=== PATIENT | male | born 1940 | race Caucasian/White ===

== ENCOUNTER 2017-02-01 01:09 | Inpatient (IN) ==
[~2017-02-01 01:09] MED LIST: PROTONIX 80 MG in NS 80 ML IV ONE
[2017-02-01 01:10] LABS: MANUAL DIFF NEEDED? NO
[2017-02-01 01:18] LABS: BASO% 0.3 % (0.0-0.8); EOS# 0.01 X1000 (0.0-0.7); EOS% 0.1 % (0.0-10.0); HEMATOCRIT 23.3 % (42.0-52.0); IMM GRAN# 0.04 X1000 (0.0-0.04); IMM GRAN% 0.3 % (0.0-0.5); LYMPH# 1.59 X1000 (1.2-3.4); LYMPH% 13.9 % (20.5-51.1); MCH 26.1 PG (27-31); MCV 86.9 FL (81-99); MONO# 0.73 X1000 (0.11-0.59); MONO% 6.4 % (1.7-9.3); MPV 10.8 FL (7.4-10.4); PLT 247 X1000 (130-400); RBC 2.68 XMIL (4.7-6.1)
[2017-02-01] MEDS ORDERED: NS 1,000 ML IV ONE (01:28)
[2017-02-01 01:50] LABS: ALBUMIN 3.9 g/dL (3.5-5.0); CALCIUM 8.5 mg/dL (8.8-10.2); POTASSIUM 4.7 mmol/L (3.5-5.1); TOTAL BILIRUBIN 0.47 mg/dL (0.20-1.00); TOTAL PROTEIN 6.6 g/dL (6.3-8.3)
[2017-02-01 01:51] LABS: INR 2.63; PROTIME 29.4 Seconds (9.2-11.7)
[2017-02-01] MEDS: PROTONIX 80 MG in NS 80 ML IV SCH ×3 (02:00→23:49)
--- NOTE | 2017-02-01 03:00 | PROVIDER DOCUMENTATION ---
This chart was entered by Sudha Vila Scribe, acting as scribe for Ang Velasquez MD. HPI-Abdominal Pain/GI Problem - General Chief Complaint: GI Bleed Stated Complaint: GI BLEEDING "DARK STOOLS" Time Seen by Provider: 02/01/17 01:52 Source: patient Allergies/Adverse Reactions: Patient Allergies Allergy/AdvReac Type Severity Reaction Status Date / Time Penicillins Allergy HIVES Verified 03/11/16 12:54 Home Medications: Home Medication List Medication Instructions Recorded Confirmed Last Taken Type Calcium Carbonate [Tums] 500 mg PO BID 10/22/15 03/11/16 03/11/16 09:30 History Cyanocobalamin (Vitamin B-12) 200 mcg PO DAILY 10/22/15 03/11/16 03/11/16 09:30 History [Cyanocobalamin] Furosemide [Lasix] 40 mg PO DIRECTED 10/22/15 03/11/16 03/11/16 09:30 History Insulin Aspart [Novolog] 10 unit SQ TID 10/22/15 03/11/16 03/11/16 09:30 History Levothyroxine [Synthroid] 25 microgm PO DAILY 10/22/15 03/11/16 03/11/16 09:30 History PRAVAstatin [Pravachol] 40 mg PO DAILY 10/22/15 03/11/16 03/10/16 History Potassium Chloride 20 meq PO DAILY 10/22/15 03/11/16 03/11/16 09:30 History Warfarin [Coumadin] 2.5 mg PO DIRECTED 10/22/15 03/11/16 03/11/16 09:30 History Alfuzosin HCl [Uroxatral] 10 mg PO DAILY 03/11/16 03/11/16 03/11/16 09:30 History Cholecalciferol (Vit D3) [Vitamin 400 unit PO DAILY 03/11/16 03/11/16 03/11/16 09:30 History D] Cyclobenzaprine [Flexeril] 10 mg PO TID #20 tablet 03/11/16 Unknown Rx Lisinopril 2.5 mg PO DAILY 03/11/16 03/11/16 03/11/16 09:30 History NPH, Human Insulin Isophane 12 unit SQ QHS 03/11/16 03/11/16 03/10/16 History [Novolin N] NPH, Human Insulin Isophane 20 unit SQ DIRECTED 03/11/16 03/11/16 03/11/16 09 :30 History [Novolin N] Tramadol [Ultram] 50 mg PO Q8HR #20 tablet 03/11/16 Unknown Rx - History of Present Illness-ABD Nature of Presenting Problems: 76 Y/O M presents to ED with Rectal Bleeding. Pt states that he has had black stools since 3 days ago 1x a day. Pt states dizziness with lightheaded onset today. Denies ABD pain sates rolling feeling in ABD. Pt states no hx of GI bleed. Severity in ED: reports: severe Onset/Duration: reports: 3 days ago Timing: reports: still present, changing over time, getting worse Associated Symptoms: reports: dizziness, genitourinary problems, weakness. denies: diarrhea, EENT symptoms, fever/chills, sinus congestion/drainage, seizure, sensory/motor loss, swelling/mass in abdomen, vomiting Last BM: this afternoon Dark Stools Present?: reports: black Review of Systems - Adult - REVIEW OF SYSTEMS - ADULT Constitutional: denies: chills, fever Eyes: reports: no symptoms reported Ears, Nose, Mouth & Throat: reports: no symptoms reported Cardiovascular: reports: no symptoms reported Respiratory: reports: no symptoms reported Gastrointestinal: reports: rectal bleeding. denies: abdominal pain, diarrhea, nausea, vomiting Genitourinary: reports: no symptoms reported Musculoskeletal: denies: bone pain Integumentary: reports: no symptoms reported Neurological: reports: dizziness/vertigo, other. denies: loss of balance, slurred speech Psychiatric: reports: no symptoms reported Endocrine: reports: no symptoms reported Hematologic/Lymphatic: reports: no symptoms reported Allergic/Immunologic: reports: no symptoms reported All Other Systems: Reviewed and Negative Past History - Adult - PAST MEDICAL HISTORY-ADULT Review of Records: reports: Old Records Reviewed, Nursing Assessment Review, Medications Reviewed, Social history reviewed & non-contributory. Major Childhood Illnesses: reports: denies history Cardiovascular: reports: CHF, pacemaker Respiratory: reports: denies history Gastrointestinal: reports: denies history Obstetrical/Gynecological: reports: denies history Genitourinary: reports: denies history Musculoskeletal: reports: denies history Neurological: reports: denies history Endocrine/Immune: reports: Diabetes Other Conditions: reports: denies history - PRIOR SURGERIES/PROCEDURES Surgical/Procedure History: reports: pacemaker - IMMUNIZATION STATUS Childhood Immunizations: See Nurse Assessment Flu Vaccine: See Nurse Assessment - FAMILY HISTORY Family History: reviewed, not pertinent Physical Exam-General - CONSTITUTIONAL General Appearance: alert, no apparent distress - EYES Eyes: anisocoria, pale conjunctivae - HEAD, EARS, NOSE, MOUTH & THROAT HENMT: moist mucous membranes, normal ENT inspection, TMs normal, pharynx normal - NECK Neck: full range of motion, supple - RESPIRATORY Respiratory: lungs clear, normal breath sounds - CARDIOVASCULAR Cardiovascular: regular rate, rhythm - GASTROINTESTINAL (ABDOMEN) Abdominal Exam: non tender, soft - LYMPHATIC Lymphatic: no adenopathy - MUSCULOSKELETAL Back Exam: no CVA tenderness, no vertebral tenderness Extremity: non-tender, normal gait - SKIN Integumentary: negative: normal color (pale) - NEUROLOGIC Neurologic: grossly normal - PSYCHIATRIC Psych/Mental Status: normal mood/affect, normal thought content, normal thought process, oriented x 3 Progress - PLAN OF CARE/RESULTS Progress/Plan/Lab Results: Vital Signs - 8 hr 02/01/17 00:39 Temperature 98.1 F Pulse Rate 81 Respiratory Rate 15 Blood Pressure 115/77 O2 Sat by Pulse Oximetry 99 Laboratory Results - last 24 hr 02/01/17 02/01/17 00:41 00:41 WBC 11.48 H RBC 2.68 L Hgb 7.0 L Hct 23.3 L MCV 86.9 MCH 26.1 L MCHC 30.0 L RDW Std Deviation 16.4 H Plt Count 247 MPV 10.8 H Immature Gran % (Auto) 0.3 Neut % (Auto) 79.0 H Lymph % (Auto) 13.[address] [place] % (Auto) 6.4 Eos % (Auto) 0.1 Baso % (Auto) 0.3 Immature Gran # (Auto) 0.04 Neut # (Auto) 9.08 H Lymph # (Auto) 1.59 [place] # (Auto) 0.73 H Eos # (Auto) 0.01 Baso # (Auto) 0.03 Estimated GFR/1.73 m2 42 Orders Category Date Time Status Saline Loc DIRECTED Care 02/01/17 00:42 Active Transfuse .Give-Transfuse Care 02/01/17 01:25 Active NPO Diet 02/01/17 00:42 Active FLAT/UPRIGHT ABD/1 VIEW CHEST [RAD] Stat Exams 02/01/17 00:43 Taken CBC WITH ELECTRONIC DIFF [HEME] Stat Lab 02/01/17 00:41 Completed COMPREHENSIVE METABOLIC PANEL [CHEM] Stat Lab 02/01/17 00:41 Results FRESH FROZEN PLASMA [BBK] Stat Lab 02/01/17 00:41 Results LIPASE [CHEM] Stat Lab 02/01/17 00:41 Results LRPC (RED CELLS) [BBK] Stat Lab 02/01/17 01:25 Uncollected PROTIME WITH INR [COAG] Stat Lab 02/01/17 01:26 Received TYPE & SCREEN [BBK] Stat Lab 02/01/17 00:41 Results 0.9% Sodium Chloride Inj [Ns] 1,000 ml Med 02/01/17 01:28 Active IV 999 mls/hr 0.9% Sodium Chloride Inj [Ns] 80 ml Med 02/01/17 02:00 Active Pantoprazole [Protonix] 80 mg IV 10 mls/hr Pantoprazole [Protonix] 80 mg Med 02/01/17 00:43 Discontinued 0.9% Sodium Chloride Inj [Ns] 80 ml IV NOW Result Diagrams: 02/01/17 00:41 02/01/17 00:41 Departure - Departure Date of Disposition Decision: 02/01/17 Time of Disposition Decision: 02:59 DIAGNOSIS: GI bleed Qualifiers: GI bleed type/associated pathology: unspecified gastrointestinal hemorrhage type Qualified Code(s): K92.2 - Gastrointestinal hemorrhage, unspecified Disposition: ADMITTED INPATIENT 09 Certified Medical Emergency: Emergent Condition: Stable - Critical Care Note This patient required my direct & personal management of CC.: Yes Total Time (mins): 60 Critical Care Statement: This patient required my direct personal management to treat or rule out processes, the absence of which, could potentiallly result in sudden, clinically significant life or limb threatening deterioration. Attestation - Physician/ GATO Attestation Patient care was provided by Advanced Practice Provider:: No The physician spent face to face time with patient:: Yes Advanced Practice Provider documentation review:: Supervising physician onsite and consulted in the evaluation and care of this patient. The physician did have a face to face encounter with the patient. This chart was documented by the indicated scribe, (Cadence,Sudha, Scribe) and accurately reflects the services I performed and decisions made by me, Ang Velasquez MD, as attested by the provider's signature.
[2017-02-01] MEDS ORDERED: LASIX IV ONE (04:30)
--- NOTE | 2017-02-01 05:40 | HISTORY AND PHYSICAL ---
PRIMARY CARE PROVIDER: Dr. Moscoso at the [facility] in [place]. CMM OPERATOR: Dr. Jae Simon in [place]. CHIEF COMPLAINT: Black stools. HISTORY OF PRESENT ILLNESS: This is a 76-year-old, male with a history of ischemic cardiomyopathy and CABG, congestive heart failure with an ejection fraction of 50%, and diabetes mellitus, and atrial fibrillation with chronic Coumadin anticoagulation who presents to the emergency room with complaint of black stools x3 days. He stated that Monday, he noted a little bit of red blood mixed in but since that time, they have been dark and chalky. He denied abdominal pain, nausea, vomiting, chest pain, fever, chills, diarrhea, or dysuria. His was at the bedside, very supportive. Laboratory data was obtained in the ER which showed a hemoglobin and hematocrit of 7 and 23.3 respectively. His INR was in range at 2.63 but because of the bleeding, he was given 2 units of FFP. This will be followed by 40 mg of Lasix in the emergency room. He will be admitted in the inpatient status for further evaluation and treatment. PAST MEDICAL HISTORY: 1. Ischemic cardiomyopathy, status post CABG. 2. Permanent pacemaker implantation with AICD. 3. Hypertension. 4. Diabetes mellitus type 2, now insulin dependent. 5. 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 6. Chronic atrial fibrillation. SURGICAL HISTORY: 1. Right partial hip. 2. Quadruple bypass cardiac surgery. 3. Back surgery. 4. Cholecystectomy. 5. AICD placement. 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 Denies tobacco, alcohol, or illicit drug use or abuse. He is , has 1 daughter who lives in [place]. FAMILY HISTORY: Extensive cardiac disease in all first-degree relatives. Has once sibling who from a myocardial infarction. ALLERGIES: Penicillin, causing hives. HOME MEDICATIONS: A list could not be reconciled. Nursing to reconcile home medication list and place in the computer. REVIEW OF SYSTEMS: Fourteen point review of systems conducted with the patient. Pertinent positives listed above in the HPI. All other systems reviewed and found to be negative. PHYSICAL EXAMINATION: VITAL SIGNS: Temperature 98.3 degrees, pulse 83, respirations 18, blood pressure 126/67, oxygen saturation 98-100 on room air. GENERAL: Very pleasant, 76-year-old male. at bedside. Answers all questions appropriately. In no acute distress. HEENT: Head is atraumatic, normocephalic. Pupils equal, round, reactive to light. Extraocular eye movement is intact. Sclerae are anicteric. Mildly pale conjunctivae. Oral mucosa is dry. NECK: Supple. No JVD. No thyromegaly. Trachea is midline. CARDIAC: Irregularly irregular. No murmurs, gallops, or rubs. LUNGS: Clear to auscultation bilaterally. No rhonchi, wheezes, or rales. Symmetrical rise and fall with respirations. ABDOMEN: Protuberant, soft, nondistended, nontender. Bowel sounds hyperactive in all 4 quadrants. No pulsatile mass. No organomegaly. EXTREMITIES: Trace bilateral lower extremity edema, nonpitting. There are 2+ pedal pulses in all 4 extremities. NEUROLOGICAL: Alert and oriented x3. Awake and alert. Cranial nerves 2-12 grossly intact. LABORATORY DATA: WBC 11.48, hemoglobin 7, hematocrit 23.3, platelet count 247, 000. PT 29.4, INR 2.63. Sodium 133, potassium 4.7, chloride 93, carbon dioxide 28, BUN 55, creatinine 1.6, glucose 189. ASSESSMENT AND PLAN: 1. Gastrointestinal bleed, likely secondary to chronic Coumadin use. Two units of fresh frozen plasma were given in the emergency room. We will consult Dr. Nurys Myrick, gastroenterology, for endoscopy/colonoscopy. Protonix drip was started in the emergency room. We will continue. 2. Acute kidney injury. This is likely secondary to acute hemorrhagic anemia. Normal saline was given in the emergency room, followed by 2 units of fresh frozen plasma. The patient will also be receiving 2 units of packed red blood cells. We will monitor fluid status as he is known to have congestive heart failure. 3. Congestive heart failure with an ejection fraction last checked at 50% as noted above. We will monitor fluid volume status. Continue Lasix 40 mg by mouth daily. I believe this is the dose the patient takes. 4. Diabetes mellitus type 2, now insulin dependent. Start sliding scale insulin with fingersticks before meals and at bedtime. 5. Hypertension. The patient is normotensive secondary to blood loss. He will likely need a continuation of his home medication. This has not been placed in the computer yet. Nursing is working on reconciling a list and this will be restarted when appropriate. 6. Further recommendations per patient's clinical course. Dictated by STACIE Bustillos for Viola Spears MD Seen,examined and discussed with CARE AID. cc: STACIE Bustillos MD [facility] Din[facility]ip
[2017-02-01] MEDS ORDERED: ZOFRAN IV PRN (05:42)
--- NOTE | 2017-02-01 06:10 | Diag Imaging Result Doc PS360 ---
EXAM: FLAT/UPRIGHT ABD/1 VIEW CHEST HISTORY: gi bleed TECHNIQUE: Four views COMPARISON: 10/26/2015 FINDINGS: The heart is enlarged. There are sternal wires and left-sided pacemaker. The vessels are not distended. No pneumonia. There is stool throughout the colon. The bowel loops are not dilated. The gallbladder has been removed. No free air beneath the diaphragm. There are degenerative changes throughout the thoracic and lumbar spine. There has been prior orthopedic replacement to the right hip. IMPRESSION: Constipation Electronically signed by Nils Haney 02/01/2017 6:08 AM
[2017-02-01 06:45] LABS: HEMOGLOBIN A1C 6.5 % (4.8-6.0)
[2017-02-01] MEDS: HUMALOG SUBQ SCH ×4 (10:47→22:11)
[2017-02-01] MEDS: LASIX PO SCH (11:02)
[2017-02-01 12:28] LABS: INR 2.54; PROTIME 28.3 Seconds (9.2-11.7)
[2017-02-01 14:16] LABS: HEMATOCRIT 25.7 % (42.0-52.0); HEMOGLOBIN 8.1 g/dL (14.0-18.0)
[2017-02-01 14:19] LABS: INR 1.9; PROTIME 20.8 Seconds (9.2-11.7)
--- NOTE | 2017-02-02 03:28 | CONSULTATION ---
DATE OF CONSULTATION: 02/01/2017 REFERRING PHYSICIAN: Viola Spears M.D. PRIMARY CARE PROVIDER: Dr. Moscoso at the [facility] in [place]. PRIMARY TOOL AND FIXTURE REPAIRER: Dr. Jae Simon in [place], [place]. INDICATION FOR CONSULTATION: Melena. HISTORY OF PRESENT ILLNESS: The patient is a 76-year-old, white male with ischemic heart disease, congestive heart failure, diabetes mellitus, atrial fibrillation, and a cardiac thrombus. He is on chronic Coumadin therapy. He presented to the emergency room with 3 days of black stool. He reports that initially, he noted some bright red blood mixed in the darker stools. However, it became persistently black and chalky. He denies other symptoms. In the emergency room, he was found to have a hemoglobin of 7 with a hematocrit of 23.3. He also had an INR of 2.63. The INR has been treated with anticoagulation. Because of his melena that has persisted since admission, we were asked to participate in his care. PAST MEDICAL HISTORY: 1. Ischemic cardiomyopathy, status post CABG. 2. Permanent pacemaker placement with AICD. 3. Hypertension. 4. Diabetes 2. 5. Cardiac thrombus requiring Coumadin. 6. Chronic atrial fibrillation. PAST SURGICAL HISTORY: 1. Partial right hip replacement. 2. Four-vessel bypass surgery. 3. Back surgery. 4. Cholecystectomy. 5. AICD. SOCIAL HISTORY: Negative for alcohol, tobacco, or recreational drug use. FAMILY HISTORY: Positive for extensive cardiac disease in multiple family members. According to the computer, he lost 1 sibling secondary to a myocardial infarction. MEDICATION ALLERGIES: Penicillin. HOME MEDICATIONS: 1. Coumadin. 2. Ultram. 3. Terazosin. 4. Potassium chloride. 5. Pravastatin. 6. Novolin NPH. 7. Robaxin. 8. Lisinopril. 9. Synthroid. 10. NovoLog. 11. Lasix. 12. Vitamin B12. 13. Vitamin D3. 14. Calcium carbonate. PHYSICAL EXAMINATION: Vital Signs: On exam, his blood pressure is 125/61, pulse 79, respirations 19, temperature of 98.6 degrees. HEENT: Negative. Oropharyngeal mucosal membranes are slightly dry. Pulmonary Examination: His lungs are clear to auscultation with normal respiratory effort. Cardiovascular Examination: Reveals an irregularly irregular rhythm with no murmurs, gallops, or rubs. Abdominal Examination: Reveals normoactive bowel sounds. The abdomen is soft with mild epigastric tenderness but no rebound or guarding. Extremities: Bilaterally are negative for cyanosis, clubbing, or edema. OBJECTIVE DATA: Remarkable for a hemoglobin of 7 with hematocrit of 23.3. His white count is 11.48 with 247,000 platelets. Posttransfusion, his hemoglobin was 8.1 with a hematocrit of 25.7 (the patient received 2 units of packed red blood cells with incomplete correction). His PT is 20.8 with an INR of 1.9. His sodium is 133, potassium 4.7, chloride 93, CO2 28 , BUN 55, creatinine 1.6 with a glucose of 189. Calcium is 8.5, total bilirubin 0.47, AST 14, ALT 9, alkaline phosphatase 82, total protein 6.6, and albumin 3.9. His lipase is normal at 41. IMPRESSION: 1. Melena. 2. Epigastric discomfort. 3. Significant coronary artery disease. RECOMMENDATION: 1. We will place patient on the schedule for an EGD tomorrow afternoon. 2. Please ask cardiology to see the patient to assess stability prior to endoscopy. I doubt that there will be any absolute contraindications to the scheduled procedure but we need to know. 3. Please check a PT/INR in the morning. He may require an additional unit of FFP prior to his endoscopy. 4. Additional recommendations to follow based on his endoscopic findings and his clinical course. cc: MD Yarelis Srivastava MD [facility] MTDD
--- NOTE | 2017-02-02 06:15 | EKG Report ---
Test Performed on : 02/01/2017 4:29:40 PM Test Reason : dyspnea Blood Pressure : / mmHG Vent. Rate : 084 BPM Atrial Rate : 087 BPM P-R Int : 000 ms QRS Dur : 156 ms QT Int : 450 ms P-R-T Axes : 000 229 038 degrees QTc Int : 531 ms Ventricular-paced rhythm Biventricular pacemaker detected Abnormal ECG When compared with ECG of 24-OCT-2015 17:04, Electronic ventricular pacemaker has replaced Wide QRS rhythm. Confirmed by Benji Hurley DO ([id number]) on 02/05/2017 4:20:28 PM
[2017-02-02 07:31] LABS: MANUAL DIFF NEEDED? NO
[2017-02-02 07:33] LABS: BASO% 0.3 % (0.0-0.8); EOS# 0.11 X1000 (0.0-0.7); HEMATOCRIT 26.5 % (42.0-52.0); HEMOGLOBIN 8.2 g/dL (14.0-18.0); IMM GRAN# 0.02 X1000 (0.0-0.04); IMM GRAN% 0.2 % (0.0-0.5); LYMPH# 1.15 X1000 (1.2-3.4); LYMPH% 10.5 % (20.5-51.1); MCH 27.2 PG (27-31); MCHC 30.9 g/dL (33-37); MCV 87.7 FL (81-99); MONO# 0.89 X1000 (0.11-0.59); MONO% 8.1 % (1.7-9.3); MPV 10.7 FL (7.4-10.4); NEUT% 79.9 % (42.2-75.2); PLT 208 X1000 (130-400); RBC 3.02 XMIL (4.7-6.1)
[2017-02-02 07:40] LABS: INR 2.32; PROTIME 25.7 Seconds (9.2-11.7)
--- NOTE | 2017-02-02 07:46 | CONSULTATION ---
DATE OF CONSULTATION: 02/01/2017 REQUESTING PHYSICIAN: Hospitalist service. REASON FOR CONSULTATION: Patient with history of coronary heart disease, long-term anticoagulation. HISTORY: Mr. Rogers is a 76-year-old male who presented to the hospital because he had noted that he was passing dark stools when going to the bathroom, and this had been going on for the past 3 days. In addition, he was feeling somewhat weak. He denies having any chest pain or abdominal pain or syncope. Upon presentation, his hemoglobin has been documented to be 7.0. His hematocrit has been documented to be 23.3. They have consulted the medical research assistant. His pro time INR at the time of presentation was 2.63 at 1:26 in the morning today. The patient has been given fresh frozen plasma and red blood cells. The patient is lying comfortably in bed. He is not having any obvious distress or active complaints. PAST MEDICAL HISTORY: His past history is positive for paroxysmal atrial fibrillation in the past. He has had coronary heart disease. He has had hypertension, hyperlipidemia, a remote history of a cardiac thrombus, COPD, diabetes mellitus type 2, CHF, peripheral vascular disease, and an episode of urinary septicemia last year which led to respiratory failure. SURGICAL HISTORY: He has had previous coronary bypass surgery x4. He has had cholecystectomy, implantation of an AICD, right hip replacement, shoulder surgery, back surgery. SOCIAL HISTORY: He is a retired tester/lift trucker. He is . He is not a smoker. FAMILY HISTORY: Coronary heart disease in several family members. HOME MEDICATIONS: Included warfarin 2.5 alternating with 5 mg. His anticoagulation is monitored by the [facility] system, Dr. Moscoso. He takes tramadol 50 mg q.8 h., terazosin 1 mg at bedtime, potassium chloride 20 mEq daily, pravastatin 40 mg daily, Robaxin 500 daily, lisinopril 2.5 daily, levothyroxine 50 mcg daily, furosemide/Lasix 40 mg as directed, Vitamin D 400 units daily, calcium carbonate 500 twice a day, Vitamin B12. ALLERGIES: Penicillin. REVIEW OF SYSTEMS: He has some chronic limitation to perform physical activity. He has some chronic arthritis. He has also some mild swelling of the lower extremities. He has not experienced any chest pain in a long time. No recent bouts of pneumonia or urinary problems. PHYSICAL EXAMINATION: Vital signs: Blood pressure 135/59, temperature 98.5, pulse is 79, respirations 19. General: He is awake, alert, obese, pale, lying flat in no distress. HEENT: No jugular venous distention, no cervical bruits. Chest: Symmetrical breath sounds, occasional rales, scattered, clear up with cough. Cardiac: Heart sounds are regular and rhythmic. I do not hear any definite gallop or murmur. Abdomen: Obese, nontender, no masses, no hepatomegaly. Extremities: Decreased pulses. There is trace brawny edema. There is some discoloration probably related to chronic stasis dermatitis. Neurological: Follows commands, moves four extremities. BLOOD WORK TODAY: His BUN is 55, creatinine 1.6, sodium 133, potassium 4.7. His white count is 11,580. EKG: EKG done today shows activity of a VVI pacemaker. He is in underlying atrial fibrillation. IMPRESSION: 1. Patient who presents with what appears to be gastrointestinal bleeding. He has black stools and anemia noted on his blood count. 2. Previous history of coronary heart disease and bypass surgery with a stable pattern of cardiac symptoms, functional class II [place] [employer]. 3. History of previous implantation of AICD. 4. Chronic/persistent atrial fibrillation on long-term anticoagulation with warfarin. The [facility] system monitors this. Dr. Simon from the [facility] monitors his pacemaker. RECOMMENDATION: From a cardiology viewpoint, it is okay to discontinue his warfarin. He apparently had a cardiac thrombus 13 years ago. The likelihood of a persistent thrombus is basically zero after 13 years. At this point in time, it will be safe to put on hold his warfarin for as long as needed to allow for resolution of his gastrointestinal bleeding, and then the medical research assistant should give specific instructions as to when to resume the anticoagulation if it is safe to do so. The patient is to follow up with the [employer] system who are the ones who monitor his anticoagulation, and also he already has an upcoming appointment with Dr. Simon in about a month from now with the [facility] for ongoing care of his underlying cardiac status which at the present time appears to be stable. Please call me if you have any questions. cc: Meir Barker MD
[2017-02-02 07:53] LABS: CALCIUM 8.7 mg/dL (8.8-10.2); POTASSIUM 3.8 mmol/L (3.5-5.1)
[2017-02-02] MEDS: HUMALOG SUBQ SCH ×4 (07:59→21:38)
[2017-02-02] MEDS ORDERED: VITAMIN K SUBQ ONE (09:57)
[2017-02-02] MEDS: PROTONIX 80 MG in NS 80 ML IV SCH (10:43)
[2017-02-02] MEDS: LASIX PO SCH (10:43)
[2017-02-02] MEDS ORDERED: NS 500 ML ONE (11:56)
[2017-02-02 14:11] LABS: INR 1.86; PROTIME 20.3 Seconds (9.2-11.7)
--- NOTE | 2017-02-02 16:49 | PROGRESS NOTE ---
DATE: 02/01/2017 SUBJECTIVE: The patient is resting comfortably in bed. He is scheduled for an endoscopy today. No acute events noted overnight. He denies having any abdominal pain or a bowel movement yet today. OBJECTIVE: Vital Signs: Temperature 97 degrees, blood pressure 130/61, heart rate 80, respirations 19, O2 saturation 98% on room air. General: This is an elderly male, sitting at the edge of the bed, in no acute distress. Heart: S1, S2. Normal. Regular rate and rhythm. Lungs: Clear to auscultation bilaterally. No crackles. No rales. Abdomen: Positive bowel sounds. Soft, nontender, nondistended. Extremities: No edema. No cyanosis. Neurologic: The patient is alert and oriented x3. LABS: White blood cell count 10, hemoglobin 8.2, hematocrit 26. INR 1.8. Sodium 140, potassium 3.8, chloride 98, CO2 27, BUN 36, creatinine 1.2, glucose 152, calcium 8.7, TSH 3.95. ASSESSMENT AND PLAN: 1. Gastrointestinal bleed. The patient will receive 2 more units of FFP since his INR was noted to be 2 this morning. The patient will hopefully be able to undergo an EGD today. Continue on the end Protonix drip as ordered. 2. History of cardiac thrombus. The patient's warfarin is on hold. 3. Ischemic cardiomyopathy status post automatic implantable cardioverter- defibrillator. Aware. 4. Morbid obesity. Aware. 5. Hypertension. Controlled. 6. Diabetes mellitus type 2. Continue on sliding scale insulin. 7. Anemia of acute blood loss. The patient's hemoglobin and hematocrit are stable. cc: Yarelis Marquis MD [facility]
[2017-02-02] MEDS ORDERED: NS 0 ML ONE (20:54)
[2017-02-02] MEDS: ASPERCREME TOP PRN (21:37)
[2017-02-03] MEDS: PROTONIX 80 MG in NS 80 ML IV SCH ×3 (00:23→18:45)
[2017-02-03] MEDS: TYLENOL PO PRN ×2 (00:36→07:43)
[2017-02-03 06:38] LABS: HEMATOCRIT 23.4 % (42.0-52.0); HEMOGLOBIN 7.3 g/dL (14.0-18.0); MCH 28.2 PG (27-31); MCHC 31.2 g/dL (33-37); MCV 90.3 FL (81-99); MPV 10.6 FL (7.4-10.4); RBC 2.59 XMIL (4.7-6.1)
[2017-02-03 06:48] LABS: INR 1.42; PROTIME 15.2 Seconds (9.2-11.7)
[2017-02-03] MEDS: HUMALOG SUBQ SCH ×4 (06:57→21:58)
[2017-02-03 06:58] LABS: CALCIUM 8.5 mg/dL (8.8-10.2); POTASSIUM 4.1 mmol/L (3.5-5.1)
--- NOTE | 2017-02-03 07:23 | Diag Imaging Result Doc PS360 ---
EXAM: CHEST-PORTABLE HISTORY: dyspnea TECHNIQUE: Portable AP COMPARISON: 02/01/2017 FINDINGS: Sternal wires are present. There is a left-sided pacemaker. The heart is enlarged. Mild central vascular prominence. There is a small left-sided pleural effusion. The overall appearance is similar to that of the prior exam. IMPRESSION: No interval improvement Electronically signed by Nils Haney 02/03/2017 7:21 AM
[2017-02-03] MEDS ORDERED: NS 500 ML ONE (08:15)
[2017-02-03] MEDS: LASIX PO SCH (08:17)
--- NOTE | 2017-02-03 14:36 | PROGRESS NOTE ---
DATE: 02/03/2017 SUBJECTIVE: The patient is resting comfortably in bed. No acute events noted overnight. The patient reports that he did have a bowel movement that was dark and tarry this morning. OBJECTIVE: Vital Signs: Temperature 98 degrees, blood pressure 121/60, heart rate 77, respirations 20, O2 saturations 97% on room air. General: This is a morbidly obese male, lying in bed, in no acute distress. Head: Normocephalic, atraumatic. Heart: S1, S2. Normal. Regular rate and rhythm. Lungs: Clear to auscultation bilaterally. No wheezes , no rales. No rhonchi. Abdomen: Positive bowel sounds. Soft, nontender, nondistended. Extremities: No edema. No cyanosis. No calf tenderness. Neurologic: The patient is alert and oriented x3. LABS: White blood cell count 10, hemoglobin 7.3 hematocrit 23, platelets 175, 000, INR 1.4. Sodium 140, potassium 4.1, chloride 99, CO2 30, BUN 29. Creatinine 1.4. Glucose 222. Calcium 8.5. ASSESSMENT AND PLAN: 1. Gastrointestinal bleed. The patient's hemoglobin and hematocrit did drop overnight. We will transfuse 1 unit of packed red blood cells today. The patient will be undergoing colonoscopy this coming week. We will continue to monitor the hemoglobin and hematocrit closely. 2. Anemia of acute blood loss. The patient will be transfused today. We will continue to monitor the hemoglobin and hematocrit closely. 3. Ischemic cardiomyopathy. Aware. 4. Chronic kidney disease. Stable. 5. Diabetes mellitus type 2. Continue on sliding scale insulin. 6. Cardiac thrombus. The patient's anticoagulation is currently on hold due to the gastrointestinal bleed. 7. Morbid obesity. Aware. cc: Yarelis Marquis MD MTDD
[2017-02-04] MEDS: TYLENOL PO PRN ×3 (00:21→21:16)
--- NOTE | 2017-02-04 00:21 | PROGRESS NOTE ---
DATE: 02/03/2017 SUBJECTIVE: The patient states that he is feeling better today. He denies the recurrence of melena, and actually reports constipation. He tolerated his meals, and feels well otherwise. PHYSICAL EXAMINATION: Vital Signs: His blood pressure is 131/61, pulse of 80, respirations 17, temperature of 98.0. His oxygen saturation is 91% on room air. OBJECTIVE DATA: Reveals a hemoglobin of 7.3, with a hematocrit of 23.4, and a white count of 10.85. His platelet count is 175,000. His PT is 15.3, with an INR of 1.42. His sodium is 140, potassium 4.1, chloride 99, CO2 of 30, BUN 29, creatinine 1.4, with a glucose of 222. His calcium is 8.5. IMPRESSION: 1. Melena. 2. Anemia. 3. Progressive decline in hemoglobin. RECOMMENDATION: 1. The patient underwent an EGD yesterday that revealed mild gastritis, with no source of bleeding found. Therefore, I recommend that he undergo a colonoscopy next week. 2. Continue Protonix drip for 72 hours given that he had erosive esophagitis. After 72 hours, I would transition his therapy to oral omeprazole 40 mg daily. 3. Continue to monitor serial hemoglobins and hematocrits. Given his cardiac disease, I would transfuse to keep his hemoglobin above 8. 4. Additional recommendations to follow based on his clinical course. cc: MD Yarelis Srivastava MD Luis N. Villanueva, MD [facility]
--- NOTE | 2017-02-04 04:07 | OPERATIVE NOTE ---
PROCEDURE DATE: 02/02/2017 REFERRING PROVIDER: Yarelis Marquis M.D. INDICATIONS FOR PROCEDURE: 1. Melena. 2. Iron deficiency anemia with a decreasing hemoglobin. 3. Over anticoagulation secondary to Coumadin therapy. PROCEDURE PERFORMED: Esophagogastroduodenoscopy. CONSENT: Informed consent was obtained from the patient prior to the procedure. The risks, benefits, and alternatives were discussed. MEDICATION: The patient received monitored anesthesia care. PERFORMING PHYSICIAN: Nurys Myrick M.D. ASSISTANTS: 1. ST. José Miguel 2. Lou Sanchez RN. 3. Marlen Ch CRNA. 4. Andrew Martin M.D. (anesthesia). COMPLICATIONS: There were no complications. ESTIMATED BLOOD LOSS: None. SPECIMENS REMOVED: None. FINDINGS: After sedation was achieved, the upper endoscope was inserted to the 2nd portion of the duodenum. The hypopharynx and tubular esophagus appeared normal. The GE junction appeared normal at 45 cm from insertion. There was a hiatal hernia that spanned from 45-50 cm. The lower esophagus was [id number] hyperemic but there were no ulcers present consistent with possible early grade A erosive esophagitis. In the gastric lumen, there was nonerosive gastritis in the fundus, antrum and body. There were no ulcers, erosions, varices or AVMs noted. The pylorus appeared normal. The 1st and 2nd portion of the duodenum as well as the ampulla of Vater appeared normal. IMPRESSION: 1. Hiatal hernia. 2. Possible grade A erosive esophagitis. 3. Nonerosive gastritis. 4. Normal duodenum. RECOMMENDATION: 1. Continue IV Protonix for now. 2. The patient continues to have a supratherapeutic INR which will need to be corrected. 3. Once the INR is corrected, we will plan to perform a colonoscopy on the patient early next week. 4. Please monitor serial hemoglobin and hematocrit and transfuse as needed to keep his hemoglobin above 8. With his history of heart disease, it would be reasonable to even consider keeping his hemoglobin closer to 10. 5. Additional recommendations to follow based on his clinical course and results of his upcoming colonoscopy. cc: MD Drake Srivastava MD [facility]
[2017-02-04] MEDS: PROTONIX 80 MG in NS 80 ML IV SCH (04:11)
[2017-02-04] MEDS: HUMALOG SUBQ SCH ×4 (07:02→21:04)
[2017-02-04 07:16] LABS: INR 1.11; PROTIME 11.7 Seconds (9.2-11.7)
[2017-02-04 07:29] LABS: CALCIUM 8.6 mg/dL (8.8-10.2); POTASSIUM 3.5 mmol/L (3.5-5.1)
[2017-02-04 07:39] LABS: HEMATOCRIT 27.9 % (42.0-52.0); HEMOGLOBIN 8.6 g/dL (14.0-18.0); MCH 28.1 PG (27-31); MCHC 30.8 g/dL (33-37); MCV 91.2 FL (81-99); MPV 10.9 FL (7.4-10.4); RBC 3.06 XMIL (4.7-6.1)
[2017-02-04] MEDS: MERREM 500 MG in NS 50 ML IV SCH ×2 (14:50→21:05)
[2017-02-04 15:34] LABS: URINE MICRO REVIEW NEEDED? NO; URINE SOURCE CATH
[2017-02-04 15:38] LABS: BILIRUBIN URINE NEGATIVE (NEGATIVE); BLOOD URINE NEGATIVE (NEGATIVE); COLOR YELLOW; GLUCOSE URINE >1000 mg/dL (NEGATIVE); LEUKOCYTES URINE NEGATIVE (NEGATIVE); NITRITE URINE NEGATIVE (NEGATIVE); PH URINE 5.5; PROTEIN URINE TRACE mg/dL (NEGATIVE); SP GRAVITY URINE 1.017; TURBIDITY URINE CLEAR (CLEAR); UROBILINOGEN URINE NORMAL (NORMAL)
[2017-02-04 15:40] LABS: UR EPITHELIAL CELLS <10 /HPF (<10); URINE BACTERIA NEGATIVE /HPF; URINE RBC <10 /HPF (<10); URINE WBC <10 /HPF (<10)
--- NOTE | 2017-02-04 16:03 | PROGRESS NOTE ---
DATE: 02/04/2017 SUBJECTIVE: The patient is resting comfortably in bed. He has no complaints. He states that has not had a bowel movement yesterday. OBJECTIVE: Vital Signs: Temperature 99 degrees, blood pressure 136/61, heart rate 81, respirations 18, O2 saturations 100% on room air. General: This is an elderly male, lying in bed, in no acute distress. Head: Normocephalic, atraumatic. Heart: S1, S2. Normal. Regular rate and rhythm. Lungs: Clear to auscultation bilaterally. No wheezes, no rales. No rhonchi. Abdomen: Positive bowel sounds. Soft, nontender, nondistended. Extremities: Trace pedal edema. No cyanosis. No calf tenderness. Neurologic: The patient is alert and oriented x3. LABS: White blood cell count 12, hemoglobin 8.6, hematocrit 27, platelets 192,000. Sodium 140, potassium 3.5, chloride 97, CO2 28, BUN 26. Creatinine 1.5. Glucose 191. Calcium 8.6. ASSESSMENT AND PLAN: 1. Gastrointestinal bleed. The patient's hemoglobin and hematocrit is improved after receiving 1 unit of packed red blood cells yesterday. Continue on the Protonix drip and Carafate. The patient is scheduled to undergo a colonoscopy on Monday. 2. Leukocytosis. We will check blood cultures and a urinalysis and urine culture. 3. Acute kidney injury on chronic kidney disease. We will continue to hold the patient's Lasix at this time. 4. Ischemic cardiomyopathy. Aware. 5. Diabetes mellitus type 2. Continue on sliding scale insulin. 6. Cardiac thrombus. The patient's warfarin is currently on hold. 7. Coronary artery disease. Aware. 8. Deep vein thrombosis prophylaxis. Continue with sequential compression devices. cc: Yarelis Marquis MD
--- NOTE | 2017-02-04 20:15 | PROGRESS NOTE ---
DATE: 02/04/2017 SUBJECTIVE: The patient continues to have a declining hemoglobin despite the absence of melena. We will place the patient on the schedule for colonoscopy on Monday. We discussed consent. Multiple questions were answered. He denies questions after discussing the risks and benefits of the procedure. cc: Yarelis Marquis MD
[2017-02-05] MEDS: MERREM 500 MG in NS 50 ML IV SCH ×3 (04:33→23:18)
[2017-02-05] MEDS: HUMALOG SUBQ SCH ×4 (06:30→23:17)
[2017-02-05 07:06] LABS: HEMOGLOBIN 8.8 g/dL (14.0-18.0); MCH 28.3 PG (27-31); MCHC 31.4 g/dL (33-37); MPV 11.1 FL (7.4-10.4); RBC 3.11 XMIL (4.7-6.1)
[2017-02-05 07:19] LABS: CALCIUM 8.4 mg/dL (8.8-10.2); INR 1.14; PROTIME 12.1 Seconds (9.2-11.7)
--- NOTE | 2017-02-05 09:17 | Diag Imaging Result Doc PS360 ---
CT THORAX/ABD/PELVIS W/O CONT - 02/05/2017 INDICATION: dyspnea/leukocytosis TECHNIQUE: A CT dose reduction protocol was used. COMPARISON: 10/23/2015 FINDINGS: CHEST: There is a pacemaker and CABG changes. There is significant cardiomegaly. There are trace pleural effusions left greater than right. There is mild paraseptal COPD. There is some hazy central groundglass interstitial opacity in the lungs compatible with pulmonary edema. No large consolidations. Abdomen pelvis: No radiodense renal stones. No hydronephrosis or hydroureter. There is moderate rectal stool impaction with rectal stool ball measuring 8 cm. No bowel obstruction or inflammation. Normal appendix. Moderate diverticulosis of the descending and sigmoid colon. Mann catheter in the urinary bladder. There is mild body wall edema. No free fluid in the abdomen. Stable right hip prosthesis in good position. There are moderate degenerative changes of the spine. No acute or suspicious bony lesion. IMPRESSION: 1. Cardiomegaly and mild pulmonary edema. Trace pleural effusions. 2. Rectal stool impaction. Diverticulosis coli. Electronically signed by Rakesh Caballero 02/05/2017 9:15 AM
[2017-02-05] MEDS ORDERED: LASIX PO SCH (10:00)
[2017-02-05] MEDS ORDERED: GOLYTELY PO ONE (14:00)
--- NOTE | 2017-02-05 17:09 | PROGRESS NOTE ---
DATE: 02/05/2017 SUBJECTIVE: The patient is resting comfortably in bed. No acute events noted overnight. OBJECTIVE: Vital Signs: Temp 98.6 degrees, blood pressure 154/62, heart rate 76, respirations 18, O2 saturation is 97% on 2 L nasal cannula. General: This is a morbidly obese male, lying in bed, in no acute distress. Head: Normocephalic, atraumatic. Heart: S1, S2. Normal. Regular rate rhythm. Lungs: Equal air entry bilaterally. No crackles. No rales. Abdomen: Positive bowel sounds. Soft, nontender, nondistended. Extremities: There is +1 edema. Neurologic: The patient is alert and oriented x3. LABS: White blood cell count 14, hemoglobin 8.8, hematocrit 28, platelets 205, 000. INR 1.1. Sodium 130, potassium 4, chloride 91, CO2 25, BUN 32, creatinine 1.5, glucose 254. ProBNP 4,545. ASSESSMENT AND PLAN: 1. Pulmonary edema with volume overload. We will start the patient on IV Lasix. Will monitor the patient's urine output closely. Repeat CXR in the am. 2. Gastrointestinal bleed. The patient is scheduled to undergo a colonoscopy tomorrow. GI is following. 3. Chronic kidney disease. Stable. 4. Cardiac thrombus. The patient's Warfarin is on hold due to GI bleed. 5. Morbid obesity. Aware. 6. Coronary artery disease. Aware. 7. Ischemic cardiomyopathy. Aware. 8. Leukocytosis. The etiology of the patient's elevated white count is unknown. The CT of the abdomen and pelvis did not reveal an active infection. The patient's urine is clear of infection. Will continue on Merrem for now. 9. Deep vein thrombosis prophylaxis. Continue with SCDs. cc: Yarelis Marquis MD MTDD
--- NOTE | 2017-02-05 18:45 | PROGRESS NOTE ---
DATE: 02/05/2017 SUBJECTIVE: The patient was noted to have a fecal impaction on CT scan as well as significant diverticulosis. There is no evidence of diverticulitis. His hemoglobin has continued to trend downward. PLAN: He is currently on the schedule for colonoscopy in the morning. Please administer GoLYTELY prep as well as the soapsuds enema today. Additional recommendations to follow his endoscopic procedure. cc: MD Yarelis Srivastava MD
[2017-02-05] MEDS: LASIX IV SCH (23:18)
[2017-02-06] MEDS: TYLENOL PO PRN ×2 (00:14→08:57)
[2017-02-06] MEDS: MERREM 500 MG in NS 50 ML IV SCH ×3 (04:58→21:51)
[2017-02-06] MEDS: HUMALOG SUBQ SCH ×4 (06:09→21:51)
[2017-02-06 06:49] LABS: CALCIUM 7.9 mg/dL (8.8-10.2); POTASSIUM 3.7 mmol/L (3.5-5.1)
[2017-02-06 06:52] LABS: MCH 28.1 PG (27-31); MCHC 30.8 g/dL (33-37); MCV 91.2 FL (81-99); MPV 11.6 FL (7.4-10.4); RBC 2.85 XMIL (4.7-6.1)
--- NOTE | 2017-02-06 07:19 | Diag Imaging Result Doc PS360 ---
EXAM: CHEST-PORTABLE INDICATION: pulmonary edema TECHNIQUE: One view COMPARISON: 02/03/2017 FINDINGS: Bilateral infiltrates and central venous congestion are essentially stable. There is a stable left pleural fluid collection. No new consolidation is appreciated. Cardiac silhouette is stable. IMPRESSION: Essentially stable chest. Electronically signed by Gaston Reyes 02/06/2017 7:17 AM
[2017-02-06] MEDS: ASPERCREME TOP PRN (08:56)
[2017-02-06] MEDS: LASIX IV SCH ×2 (09:01→21:51)
[2017-02-06] MEDS ORDERED: BLISTEX MEDICATED BERRY LIP BALM TOP PRN (09:07)
--- NOTE | 2017-02-06 13:17 | PROGRESS NOTE ---
DATE: 02/06/2017 SUBJECTIVE: A 76-year-old presented with black stools. He is followed by Dr. Jae Simon in [place], Dr. Moscoso at the [facility]. He presented with a history of black stools, ischemic cardiomyopathy, status post CABG, congestive heart failure, ejection fraction 50%, diabetes mellitus, atrial fibrillation with chronic Coumadin anticoagulation. Presented to the emergency room with black stools for 3 days. It started 3 days ago, noted a little bit red mixed in the stool. PAST MEDICAL HISTORY: 1. Ischemic cardiomyopathy, status post CABG. 2. Permanent pacemaker implantation, AICD. 3. Hypertension. 4. Diabetes mellitus type 2. 5. History of cardiac thrombus, been on Coumadin for 10 years. 6. Chronic atrial fibrillation. PAST SURGICAL HISTORY: 1. Right partial hip. 2. Quadruple bypass cardiac surgery. 3. Back surgery. 4. Cholecystectomy. 5. AICD placement. So admitted with gastrointestinal bleed secondary to chronic Coumadin use. Was given 2 units fresh frozen because of coagulopathy from Coumadin and this was given in the emergency room. Dr. Myrick was following. Dr. Barker consulted in regards to his heart. Dr. Myrick consulted for GI bleed. History of previous implantation of AICD, chronic persistent atrial fibrillation, long- term anticoagulation with warfarin. [place] is monitoring this. Dr. Simon, [facility], monitors his pacemaker. From cardiology standpoint it was okay to discontinue warfarin. Had a cardiac thrombus 13 years ago. Likelihood of persistent thrombus after [address] Myrick evaluated and scheduled an EGD. The EGD was done on 02/03/2017. Found hiatal hernia, possible grade A erosive esophagitis, nonerosive gastritis, and normal duodenum. So continued the IV Protonix. INR was corrected and colonoscopy is in the plans I think. CT of the abdomen and pelvis done on 02/05/2017. Cardiomegaly, mild pulmonary edema, rectal stool impaction, diverticulosis. Patient is feeling a little stronger but still unable to ambulate, unable to walk so general weakness. His blood work this morning, hemoglobin 8, hematocrit 26. Chemistry is unremarkable. Creatinine is 1.2, sodium 139, potassium 3.7, chloride 97, BUN 30, creatinine 1.2. Chest x-ray on 02/06/2017 essentially stable. ASSESSMENT AND PLAN: I think they are still looking at doing a colonoscopy possibly in the morning and administer GoLYTELY and soapsuds enema. 1. Pulmonary edema with volume overload. Received of IV Lasix. Good diuresis and breathing has improved. Chest x-ray is improved. 2. Gastrointestinal bleed. The plan to do a colonoscopy. They are thinking about doing that today but I think they may have rescheduled. He had an EGD and found a hiatal hernia and esophagitis. 3. Chronic kidney disease, stable. 4. Cardiac thrombosis 13 years ago for which he is on warfarin. We are okay to hold this. 5. Morbid obesity. 6. Coronary artery disease. 7. Ischemic cardiomyopathy. 8. Leukocytosis, nonspecific. Continue present regimen. We will get physical therapy to start working with him and I think we need to pursue trying to go to rehab. cc: Ej Nino MD
[2017-02-06] MEDS ORDERED: DIPRIVAN 1% ONE (13:43)
[2017-02-06] MEDS ORDERED: XYLOCAINE-MPF 2% ONE (13:43)
--- NOTE | 2017-02-06 20:36 | OPERATIVE NOTE ---
PROCEDURE DATE: 02/01/2017 PROCEDURE: Colonoscopy and polypectomy. PREOPERATIVE DIAGNOSIS: 1. Anemia. 2. Possible chronic gastrointestinal bleed. POSTOPERATIVE DIAGNOSIS: 1. Colon polyp. Polypectomy performed. 2. Diverticulosis left colon moderate. MEDICATION USED: MAC as per Anesthesia. SCOPE: [employer] CF HQ 190. HISTORY: This 76-year-old gentleman who was evaluated by Dr. Myrick for anemia. EGD done by her did not reveal pathology that would explain his anemia. Colonoscopy was done to rule out lower GI pathology. DESCRIPTION OF PROCEDURE: Informed consent obtained from the patient and his . Procedure risks, benefits, alternatives were explained in layman's terms. They understood. All their pertinent questions answered. Patient was brought to the endoscopy unit and was premedicated as per Anesthesia. After adequate sedation while he was lying in left lateral position, digital rectal exam was performed which was normal. Scope was then gently introduced into the rectum and advanced under direct vision through the parts of colon all the way up to the cecum. The cecum was identified by ileocecal valve and the appendiceal orifice. The scope was withdrawn paying careful attention to details. Preparation was poor. There were significant amount of mixed stool present throughout the colon but predominantly in the dependent part but the content could not be completely suctioned out to the satisfaction. The visualization was not completely adequate. However I did see a polyp in the ascending colon which was about 6 mm in size smooth surface. Polypectomy was performed by snare and cautery. Otherwise did not see any pathology in the ascending colon, descending colon, sigmoid colon, except diverticula. These were plenty. They were moderate in number and did not have any evidence of or stigmata of recent bleed. The rectum was examined both in straight and retroflexed view which revealed no pathology either. The scope was then removed. Patient tolerated procedure well. No complications noted. Patient was then transferred to the recovery area in a stable condition. IMPRESSION: 1. Colon polyps. Polypectomy performed. 2. Diverticulosis moderately severe in the left side of the colon. Otherwise I did not see any pathology that would explain his anemia. Albeit his preparation was not adequate. RECOMMENDATION: I would continue to observe his hemoglobin and hematocrit, transfuse if necessary and advised him to be followed up at the office with Dr. Myrick and depending on his progress further plans be made. I have explained the finding and plan with the patient's . She understood, all the pertinent questions answered. cc: Nurys Myrick MD
[2017-02-07] MEDS: TYLENOL PO PRN ×2 (00:31→07:59)
[2017-02-07] MEDS: MERREM 500 MG in NS 50 ML IV SCH ×3 (06:08→20:58)
[2017-02-07] MEDS: HUMALOG SUBQ SCH ×4 (06:50→21:16)
[2017-02-07 07:14] LABS: CALCIUM 7.4 mg/dL (8.8-10.2); POTASSIUM 3.4 mmol/L (3.5-5.1)
[2017-02-07] MEDS: ASPERCREME TOP PRN (07:59)
[2017-02-07] MEDS: LASIX IV SCH ×2 (10:28→21:03)
--- NOTE | 2017-02-07 17:32 | PROGRESS NOTE ---
DATE: 02/07/2017 SUBJECTIVE: Mr. Rogers states that he is feeling better. OBJECTIVE: He remains afebrile, temperature 98 degrees, pulse 76, respirations 16, blood pressure 155/73.HEENT: Pupils are equal, round. CVP less than 6 cm. Lungs: Clear in all lung izaguirre. Cardiovascular: Regular rhythm and rate without murmur or S3. Genitourinary: Urine output 2300. DIAGNOSTIC DATA: Blood sugars 132, 185, 230. Lab: White count 12,000, hematocrit 26, platelet count 212,000. Sodium 136, potassium 3.4, chloride 95, BUN 31, creatinine 1.3. Blood sugars while 185, 182, 230, 320. He underwent EGD today and a colonoscopy. He found a colon polyp. Polypectomy was performed. Diverticulosis left colon moderate so he underwent colonoscopy. Diverticulosis mildly severe in left side of colon. ASSESSMENT AND PLAN: 1. Pulmonary edema, volume overload. Received IV Lasix, has improved. Breathing is much improved. 2. Gastrointestinal bleed. Colonoscopy performed. Polypectomy performed. EGD found a hiatal hernia and esophagitis. No active bleeding. 3. Chronic kidney disease. Stable. 4. Cardiac thrombosis which is over 13 years ago. We have stopped his anticoagulant. 5. Morbid obesity. 6. Coronary artery disease. 7. Ischemic cardiomyopathy. 8. Leukocytosis which is nonspecific. Continue physical therapy. I have reviewed his orders. We are going to probably need to find rehab for discharge. Presently he is getting Lasix 40 mg IV q.12 hours. He is on meropenem 500 mg IV q.8h, and I will repeat a chest x-ray, repeat CBC, and Chem 12 tomorrow. cc: Ej Nino MD
--- NOTE | 2017-02-08 00:28 | PROGRESS NOTE ---
DATE: 02/07/2017 SUBJECTIVE: The patient states that he is feeling better today. He did not see any blood in his stool. He underwent a colonoscopy yesterday, and an EGD last week that was negative for signs of bleeding. He reports that he is ready to get started back on his Coumadin therapy. On exam, his blood pressure is 153/71, pulse of 80, respirations 16, temperature of 98.3 degrees. The remainder of his exam was deferred, as the patient was eating. OBJECTIVE DATA: Remarkable for labs from 02/06/2017, with a hemoglobin of 8.0, hematocrit 26, and a white count of 12.0. He had 212,000 platelets. On 02/07/2017, his sodium was 136, potassium 3.4, chloride 95, CO2 of 32, BUN 31, creatinine 1.3, glucose 182, and calcium 7.4. RECOMMENDATIONS: 1. The patient underwent both an EGD and a colonoscopy, which were negative for source of bleeding. Therefore, I recommend resuming his anticoagulation therapy from a cardiac perspective. 2. Please advance his diet to a GI soft. 3. In the absence of recurrent bleeding, I would resume his anticoagulation. 4. Will sign off at this time. Thank you for allowing us participate in the care of this patient. cc: Nurys Myrick MD
[2017-02-08] MEDS: MERREM 500 MG in NS 50 ML IV SCH ×3 (05:18→21:37)
[2017-02-08] MEDS: HUMALOG SUBQ SCH ×4 (06:43→21:39)
[2017-02-08 07:02] LABS: AGAP 11; BUN 32 mg/dL (8-22); CALCIUM 8.3 mg/dL (8.8-10.2); CHLORIDE 94 mmol/L (98-107); COSMO 289; POTASSIUM 3.3 mmol/L (3.5-5.1); SODIUM 138 mmol/L (136-145); TCO2 33 mmol/L (25-35)
[2017-02-08] MEDS: LASIX IV SCH ×2 (10:01→21:40)
[2017-02-08] MEDS: ASPERCREME TOP PRN (10:14)
--- NOTE | 2017-02-08 17:09 | PROGRESS NOTE ---
DATE: 02/08/2017 SUBJECTIVE: Mr. Rogers is feeling better. He does not like the food but he is eating. He feels a little stronger but feels like he still needs to go first to rehab to get a little stronger. OBJECTIVE: Vital Signs: Temperature 98.5 degrees, pulse 80, respirations 20, blood pressure 162/55. HEENT: Pupils are equal and round. CVP less than 6 cm. Lungs: Clear in all lung izaguirre. Cardiovascular exam: Regular rhythm and rate without murmur or S3. Abdomen: Soft. Skin: Warm and dry. Genitourinary: Urine output 1300 mL. Blood sugars 320, 190, 341. LAB TODAY: Sodium 138, potassium 3.3, chloride 94, BUN 32, creatinine 1.0. Blood sugar 209, 191, 350, 341. ASSESSMENT AND PLAN: 1. Underwent esophagogastroduodenoscopy and colonoscopy which were negative for source of bleeding, so recommend resuming his anticoagulation from cardiac perspective per Dr. Myrick. 2. Advancing in his diet to GI soft diet. 3. Recurrent bleeding. In the absence of recurrent bleeding I want to resume his anticoagulation. 4. General weakness and deconditioning. Continue physical therapy. 5. Obesity. Encourage weight loss. 6. History of coronary artery disease with ischemic cardiomyopathy. 7. Chronic kidney disease which is stable. cc: Ej Nino MD
[2017-02-08] MEDS: TYLENOL PO PRN (23:46)
--- NOTE | 2017-02-09 04:00 | PROGRESS NOTE ---
DATE: 02/08/2017 ADDENDUM: Note that he was getting on anticoagulant for apparently intramural thrombus that he had 13 years ago. No sign of intramural thrombus and unlikely recurrence and no indications for anticoagulation. Please see Dr. Barker's note. cc: Ej Nino MD
[2017-02-09] MEDS: MERREM 500 MG in NS 50 ML IV SCH (05:42)
[2017-02-09] MEDS: HUMALOG SUBQ SCH ×3 (05:48→12:03)
[2017-02-09 07:48] VITALS: BP 149/63
[2017-02-09] MEDS: LASIX IV SCH (10:37)
--- NOTE | 2017-02-09 11:44 | DISCHARGE SUMMARY ---
ADMISSION DATE: 02/01/2017 DISCHARGE DATE: PRIMARY CARE PROVIDER: Dr. Moscoso at [facility]. MOVIE EDITOR: Jae Simon MD in [place]. He came in with black stools. CHIEF COMPLAINT: Evidence of upper gastrointestinal bleed. HISTORY OF PRESENT ILLNESS: This is a 76-year-old with a history of ischemic cardiomyopathy, status post coronary artery bypass graft, congestive heart failure, ejection fraction estimated at 50%, diabetes mellitus type 2, atrial fibrillation, chronic Coumadin anticoagulation, presented to the emergency room on 02/01/2017 complaining of black stools for 3 days. It started on Monday, 3 days ago and noted a little bit red blood, but since that time he has been having dark chalky stools. He denied abdominal pain, nausea, vomiting, chest pain, fever, chills, diarrhea, or dysuria. His was at the bedside, very supportive. Laboratory data was obtained in the ER which showed a hemoglobin and hematocrit 7 and 23, respectively. INR range of 2.63. Because of his bleeding was given 2 units of fresh frozen plasma. He followed with 40 mg of Lasix in the emergency room. REVIEW OF PAST MEDICAL HISTORY: Once again reviewed the past medical history. 1. Ischemic cardiomyopathy, status post coronary artery bypass graft. 2. Permanent pacemaker implantation and automatic implantable cardioverter-defibrillator. 3. Hypertension. 4. Diabetes mellitus type 2, on insulin. 5. Cardiac thrombus years ago, about 13 years ago. 6. Chronic atrial fibrillation. SURGICAL HISTORY: 1. Right partial hip. 2. Quadruple bypass cardiac surgery. 3. Back surgery. 4. Cholecystectomy. 5. Automatic implantable cardioverter-defibrillator placement. Admitted, given fluids, given some fresh frozen plasma 2 units. Gastroenterology was consulted. Dr. Myrick evaluated. Also noticed some acute kidney injury which seemed to respond to fluid. Congestive heart failure was noted, which was mild. Ejection fraction 50%. Seemed to remain well compensated and handled the volume well. 6. Diabetes mellitus type 2. Sugars were watched. Pattern sugars controlled. 7. Blood pressure well controlled. Dr. Meir Barker was consulted 02/01/2017. He felt like that his mural thrombus had long resolved. Was given Coumadin for that 13 years ago. [place] like we could leave him off of the anticoagulation therapy. He does not have other risk factors so we will watch this continue to hold Coumadin. Dr. Myrick also consult on 02/02 and wanted to schedule him for an esophagogastroduodenoscopy, which was performed on 02/03/2017 and found hiatal hernia, possible Grade A erosive esophagitis, erosive gastritis, and normal duodenum. Wanted continue IV Protonix. We will hold the Coumadin. He had no further sign of bleeding or melena. He was weak and deconditioned. Complained of his knees hurting, both bilateral degenerative knee arthralgia and so I felt he would benefit from going to rehab. We will plan to send him to rehab on 02/09/2017. Rehab order. MEDICATIONS: Tylenol 650 q.6 hours p.r.n. We will switch him to Lasix 40 mg p.o. q.a.m. and q. 1 o'clock p.m. and he will use Aspercreme on his knees. I will let him have some tramadol. Will try that and see if it will help with his knee pain. He had no growth in his cultures. He was treated with some meropenem. He did not show any sign of pneumonia. Chest x-ray on 02/03 mild central vascular prominence. There were some pleural effusions, so I did feel like he had some pulmonary hypertension, so we will continue the Lasix. cc: Ej Nino MD
[2017-02-09] MEDS: TYLENOL PO PRN (12:03)
== END 2017-02-09 14:26 ==
LOC: ED 01:09 → SUATTDRO 04:56 → EDIPHOLD 04:56 → 3N 11:07
PROVIDERS: ATTEND Emergency Medicine